=== PATIENT | male | born 2005 | race Caucasian/White ===

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

== ENCOUNTER 2023-09-13 11:29 | Emergency (ER) | payer OTHER ==
[2023-09-13 12:05] VITALS: BP 115/60; PULSE 90; RESP 16; TEMP 98.4; BMI 37.1
[2023-09-13] MEDS ORDERED: IBUPROFEN 400 MG TABLET (FP) PO ONE (12:58)
[2023-09-13] MEDS: IBUPROFEN 400 MG TABLET (FP) PO ONE (13:01)
[2023-09-13 14:00] LABS: EOS % 0.4 % (0-4.5); HEMATOCRIT 43.4 % (35.4-49); HEMOGLOBIN 15.1 GM/dL (11.7-16.9); LYMPH % 27.9 % (8-40); MCH 29.2 pg (25.7-33.7); MCHC 34.8 g/dl (32.0-35.9); MEAN CELL VOLUME 84.1 fl (80-96); MEAN PLT VOLUME 8.7 fl (7.5-11.1); MONO % 7.7 % (3.8-10.2); PLATELET COUNT 289 10^3/uL (134-434); RBC 5.16 M/mm3 (4.00-5.60); RDW 12.4 % (11.9-15.9); WHITE BLOOD COUNT 6.6 K/mm3 (4.0-10.0)
[2023-09-13 14:11] LABS: ACTIVATED PTT 31.6 SECONDS (25.2-36.5)
[2023-09-13 14:23] LABS: POTASSIUM 4.2 mmol/L (3.5-5.1)
[2023-09-13 14:25] LABS: CALCIUM 9.4 mg/dL (8.5-10.1)
[2023-09-13 14:26] LABS: ALBUMIN 4.4 g/dl (3.4-5.0); BLOOD UREA NITROGEN 9.4 mg/dL (7-18); MAGNESIUM 1.9 mg/dL (1.8-2.4)
[2023-09-13 14:28] LABS: CREATININE 0.8 mg/dL (0.55-1.3)
[2023-09-13 14:29] LABS: PHOSPHOROUS 3.3 mg/dL (2.5-4.9)
[2023-09-13 14:30] LABS: BILIRUBIN,TOTAL 1.2 mg/dL (0.2-1); TOT PROT 7.4 g/dl (6.4-8.2)
[2023-09-13 14:31] LABS: INR 0.99 (0.83-1.09); PROTHROMBIN TIME (PATIENT) 11.4 SEC (9.7-13.0)
== END 2023-09-13 16:18 | disposition home or self-care (01) ==
LOC: JER 11:29
DX: R07.89 Other chest pain (principal); R10.11 Right upper quadrant pain; Z20.822 Contact with and (suspected) exposure to COVID-19
CPT/HCPCS: 0241U-QW; 36415; 71046-TC-FY; 80053; 83690; 83735; 84100; 84484; 85025; 85610; 85730; 93005; 93010; 99284-25

== ENCOUNTER 2023-09-14 01:23 | Emergency (ER) | payer OTHER ==
[2023-09-14 01:35] VITALS: BP 130/69; PULSE 76; RESP 20; TEMP 98; BMI 37.5
[2023-09-14] MEDS ORDERED: ACETAMINOPHEN 325 MG TABLET (FP) ONE (02:20)
[2023-09-14] MEDS ORDERED: IBUPROFEN 600 MG TABLET (FP) PO ONE (02:20)
[2023-09-14] MEDS: ACETAMINOPHEN 500 MG TABLET (FP) PO ONE (02:25)
[2023-09-14] MEDS: IBUPROFEN 600 MG TABLET (FP) PO ONE (02:25)
== END 2023-09-14 02:48 | disposition home or self-care (01) ==
LOC: JER 01:23
DX: R07.89 Other chest pain (principal)
CPT/HCPCS: 93005; 93010; 99283-25

== ENCOUNTER 2023-10-03 23:24 | Emergency (ER) | payer OTHER ==
[2023-10-03 23:39] VITALS: BP 109/72; PULSE 68; RESP 18; TEMP 98.4; BMI 36.3
[2023-10-04] MEDS ORDERED: KETOROLAC TROMETHAMINE 15 MG/ML VIAL ONE (00:27)
[2023-10-04] MEDS: KETOROLAC TROMETHAMINE 30 MG/1 ML VIAL IM ONE (00:31)
== END 2023-10-04 01:13 | disposition home or self-care (01) ==
LOC: JER 23:24
PROC: 3E0133Z Introduction of Anti-inflammatory into Subcutaneous Tissue, Percutaneous Approach (ICD-10-PCS; principal; 2023-10-04)
DX: R00.2 Palpitations (principal)
CPT/HCPCS: 71046-TC-FY; 93005; 93010; 93308; 99285-25

== ENCOUNTER 2023-10-31 20:51 | Emergency (ER) | payer SELFPAY ==
[2023-10-31 20:58] VITALS: BP 131/76; PULSE 78; RESP 18; TEMP 98.8; BMI 37.1
[2023-10-31] MEDS ORDERED: FAMOTIDINE 20 MG TABLET ONE (21:39)
[2023-10-31] MEDS ORDERED: MAG HYDROX/AL HYDROX/SIMETH 30 ML UNIT-DOSE CUP ONE (21:39)
[2023-10-31] MEDS ORDERED: PANTOPRAZOLE 40 MG TABLET PO ONE (21:41)
[2023-10-31] MEDS: MAG HYDROX/AL HYDROX/SIMETH 30 ML UNIT-DOSE CUP PO ONE (21:45)
[2023-10-31] MEDS: FAMOTIDINE 20 MG TABLET PO ONE (21:45)
[2023-10-31] MEDS: PANTOPRAZOLE 40 MG TABLET PO ONE (21:45)
== END 2023-10-31 22:19 | disposition home or self-care (01) ==
LOC: JER 20:51
DX: R10.13 Epigastric pain (principal); M54.9 Dorsalgia, unspecified; G89.29 Other chronic pain
CPT/HCPCS: 71046-TC-FY; 93005; 93010; 99284-25